=== PATIENT | male | born 1970 | race Caucasian/White ===

== ENCOUNTER → 2021-02-14 09:03 | Outpatient (BNVA) | payer BC, SELFPAY | PROVIDERS: PCP Nurse Practitioner Family; Visit Provider Nurse Practitioner Family | DX: E78.5 Hyperlipidemia, unspecified (principal); Z13.1 Encounter for screening for diabetes mellitus; R53.83 Other fatigue; Z12.5 Encounter for screening for malignant neoplasm of prostate | CPT/HCPCS: 80053; 80061; 84443; G0103 ==

== ENCOUNTER → 2021-06-08 08:25 | Outpatient (BNVA) | payer BC, SELFPAY | PROVIDERS: PCP Nurse Practitioner Family; Visit Provider Nurse Practitioner Family | DX: R53.83 Other fatigue (principal) | CPT/HCPCS: 84403 ==

== ENCOUNTER → 2022-07-04 09:38 | Outpatient (BNVA) | payer BC, SELFPAY | PROVIDERS: PCP Nurse Practitioner Family; Visit Provider Nurse Practitioner Family | DX: E78.5 Hyperlipidemia, unspecified (principal); I10 Essential (primary) hypertension; F41.9 Anxiety disorder, unspecified; R10.811 Right upper quadrant abdominal tenderness; R53.83 Other fatigue; Z12.5 Encounter for screening for malignant neoplasm of prostate | CPT/HCPCS: 80053; 80061; 84403; G0103 ==

== ENCOUNTER 2022-07-20 08:05 | Outpatient (CLI) | payer BC, SELFPAY ==
--- NOTE | 2022-07-20 08:15 | US_ITS ---
WS: [id number] RIGHT UPPER QUADRANT ULTRASOUND HISTORY: R10.811 - Right upper quadrant abdominal tenderness COMPARISON: None available. Liver: 15.7 cm in length. Normal size liver and echogenicity. No bile duct dilatation or mass. Portal Vein: Normal hepatopetal flow with monophasic waveform. Gallbladder: Normally distended gallbladder. Small stones within the gallbladder. No pericholecystic fluid. CBD: 0.3 cm Pancreas: Normal size and echogenicity. Right kidney: 11.9 cm in length. Normal size and echogenicity. No hydronephrosis or mass. Aorta and IVC: Unremarkable abdominal aorta and IVC. No ascites. US/US gall bladder [id number] IMPRESSION: 1. Cholelithiasis without acute cholecystitis. 2. No bile duct dilatation.
== END 2022-07-20 08:06 | disposition home or self-care (01) ==
PROVIDERS: PCP Nurse Practitioner Family; Visit Provider Nurse Practitioner Family
DX: K80.20 Calculus of gallbladder without cholecystitis without obstruction (principal)
CPT/HCPCS: 76705; 80053; 80061; 84403; G0103

== ENCOUNTER → 2024-03-16 09:10 | Outpatient (BNVA) | payer BC, SELFPAY | PROVIDERS: PCP Nurse Practitioner Family; Visit Provider Nurse Practitioner Family | DX: R53.83 Other fatigue (principal); I10 Essential (primary) hypertension; Z12.5 Encounter for screening for malignant neoplasm of prostate | CPT/HCPCS: 80053; 80061; 84403; 84439; 84443; 85025; G0103 ==